=== PATIENT | female | born 1980 | race Asian ===

== ENCOUNTER 2019-03-27 13:50 | Inpatient (IN) | payer OTHER ==
[2019-03-27 14:50] LABS: BASO % 0.2 % (0-2.0); EOS % 0.2 % (0-4.5); HEMATOCRIT 38.4 % (32.4-45.2); HEMOGLOBIN 12.9 GM/dL (10.7-15.3); MCHC 33.5 g/dl (32.0-36.0); MEAN CELL VOLUME 95.7 fl (80-96); MEAN PLT VOLUME 8.4 fl (7.5-11.1); MONO % 7.6 % (3.8-10.2); PLATELET COUNT 246 K/MM3 (134-434); RBC 4.01 M/mm3 (3.60-5.2); RDW 13.4 % (11.6-15.6); WHITE BLOOD COUNT 10.7 K/mm3 (4.0-10.0)
[2019-03-27 15:05] LABS: INR 0.82 (0.83-1.09); PROTHROMBIN TIME (PATIENT) 9.6 SEC (9.7-13.0)
[2019-03-27 15:08] LABS: ACTIVATED PTT 26.7 SECONDS (25.2-36.5)
[2019-03-27] MEDS ORDERED: KETOROLAC TROMETHAMINE 30 MG/1 ML VIAL ONE (15:13)
[2019-03-27] MEDS ORDERED: SUCCINYLCHOLINE CHLORIDE 200 MG/10 ML SYRINGE ONE (15:13)
[2019-03-27] MEDS ORDERED: ePHEDrine SULFATE 50 MG/1 ML AMPULE ONE (15:13)
[2019-03-27] MEDS ORDERED: PHENYLEPHRINE HCL 10 MG/1 ML SINGLE DOSE VIAL ONE (15:13)
[2019-03-27 15:19] LABS: BLOOD UREA NITROGEN 7.9 mg/dL (7-18); CALCIUM 8.5 mg/dL (8.5-10.1); CREATININE 0.7 mg/dL (0.55-1.3); POTASSIUM 3.9 mmol/L (3.5-5.1)
[2019-03-27] MEDS ORDERED: ELECTROLYTE-148 SOLN 1,000 ML IV SCH (15:30)
[2019-03-27 15:34] VITALS: BMI 30.9
[2019-03-27] MEDS ORDERED: ONDANSETRON 4 MG/2 ML VIAL IVPUSH PRN (15:48)
[2019-03-27] MEDS ORDERED: morphine SULFATE/PF 0.5 MG/ML (2cc Syringe - QUVA) ONE (15:50)
[2019-03-27] MEDS ORDERED: CITRIC ACID/SODIUM CITRATE 30 ML UNIT-DOSE CUP PO ONE (16:00)
--- NOTE | 2019-03-27 16:09 | HP ---
Past Medical History - Primary Care Physician PCP:: Bob Miller - Admission Chief Complaint: preganacy 41 weeks, ama , previous c/s History of Present Illness: 38 yof with one previous c/s , post date with AMA, , for repeat c/s, cx closed .long, post , head high , fhr tracing cat. 1 , risks associated with repeat c/s and future risks has explained to patient and her , ulternatives and also discussed History Source: Patient Limitations to Obtaining History: No Limitations - Past Medical History ...: 3 ...Para: 1 ...Term: 1 ...: 0 ...Spon : 1 ...Induced : 0 ...Multiple Gestation: 0 ...LMP: 06/13/18 ... Weeks Gestation by Dates: 41 ...EDC by Dates: 03/20/19 ...EDC by Sono: 03/26/19 Heme/Onc: Yes: Anemia - Past Surgical History Past Surgical History: Yes: Hx Myomectomy: No Hx Transabdominal Cerclage: No - Smoking History Smoking history: Never smoked - Alcohol/Substance Use Hx Alcohol Use: No History of Substance Use: reports: None - Social History Usual Living Arrangement: Yes: With Spouse History of Recent Travel: No Home Medications - Allergies Allergies/Adverse Reactions: Allergies Allergy/AdvReac Type Severity Reaction Status Date / Time oyster extract Allergy Verified 03/27/19 15:10 Review of Systems - Review of Systems Constitutional: reports: No Symptoms Eyes: reports: No Symptoms HENT: reports: No Symptoms Neck: reports: No Symptoms Cardiovascular: reports: No Symptoms Respiratory: reports: No Symptoms Gastrointestinal: reports: No Symptoms Physical Exam - Maternity Vital Signs: Vital Signs Temperature 97.8 F 03/27/19 15:20 Pulse Rate 81 03/27/19 15:20 Respiratory Rate 18 03/27/19 15:20 Blood Pressure 96/64 03/27/19 15:20 O2 Sat by Pulse Oximetry (%) - Labs Lab Results: CBC, BMP 03/27/19 14:15 03/27/19 14:15
[2019-03-27] MEDS ORDERED: BENZOCAINE 28 GM HEMORRHOIDAL OINTMENT PR PRN (17:20)
[2019-03-27] MEDS ORDERED: IBUPROFEN 600 MG TABLET (FP) PO PRN (17:20)
[2019-03-27] MEDS ORDERED: METHYLERGONOVINE MALEATE 0.2 MG/1 ML AMP IM PRN (17:20)
[2019-03-27] MEDS ORDERED: oxyCODONE HCL 5 MG TABLET PO PRN (17:20)
[2019-03-27] MEDS ORDERED: diphenhydrAMINE HCL 25 MG CAPSULE (FP) PO PRN (17:20)
[2019-03-27] MEDS ORDERED: WITCH HAZEL 50% (TUCKS) 40 PAD/JAR PAD TP PRN (17:20)
[2019-03-27] MEDS ORDERED: BENZOCAINE 20% 57 GM BOTTLE TP PRN (17:20)
--- NOTE | 2019-03-27 17:27 | OP ---
Operative Note - Note: Operative Date: 03/27/19 Pre-Operative Diagnosis: 41 weeks, previous c/s , AMA Operation: repeat LST c/s Findings: live baby boy, ROP, clear fluid Surgeon: Bob Miller Dye Weigher: Noble Eduardo Anesthesiologist/SAMPLES AND REPAIRS PREPARER: Walter Jacob Specimens Removed: placenta, old keloid scar Estimated Blood Loss (mls): 700 Drains & Tubes with Location: reyes Blood Volume Replaced (mls): 0 Operative Report Dictated: Yes
[2019-03-27] MEDS ORDERED: DEXTROSE 5%-LACTATED RINGERS 1,000 ML IV SCH (17:30)
[2019-03-27] MEDS ORDERED: OXYTOCIN 20 UNITS in 0.9% NS 20 UNIT/1,000 ML INFUS.BAG IV SCH (17:30)
[2019-03-27] MEDS ORDERED: CEFAZOLIN 1 GM/D5W 1 GM/50 ML BAG IVPB SCH (18:00)
[2019-03-27] MEDS: IBUPROFEN 800 MG/8 ML IJ IVPB PRN (20:48)
[2019-03-28] MEDS: ACETAMINOPHEN 325 MG TABLET (FP) PO PRN (00:16)
[2019-03-28] MEDS: SIMETHICONE 80 MG TAB.CHEW (FP) PO PRN ×2 (00:16→19:25)
--- NOTE | 2019-03-28 07:25 | PN ---
Progress Note (short form) - Note Progress Note: pod 1 s/p c/s , doing well, has mild cramps CBC, BMP 03/27/19 14:15 03/27/19 14:15 Last Vital Signs Temp Pulse Resp BP Pulse Ox 98.2 F 80 20 102/52 L 99 03/28/19 04:00 03/28/19 04:00 03/28/19 06:00 03/28/19 04:00 03/27/19 18:24 abdomen soft, no distension, no cva incision dry, clean no calf tenderness no excess vaginal bleeding plan ambulate, cbc pain management advance diet
[2019-03-28] MEDS: IBUPROFEN 800 MG/8 ML IJ IVPB PRN ×2 (07:30→13:24)
[2019-03-28] MEDS: CEFAZOLIN 1 GM/D5W 1 GM/50 ML BAG IVPB SCH ×2 (08:15)
[2019-03-28 09:31] LABS: BASO % 0.4 % (0-2.0); EOS % 0.4 % (0-4.5); HEMATOCRIT 29.2 % (32.4-45.2); HEMOGLOBIN 9.8 GM/dL (10.7-15.3); LYMPH % 11.1 % (8-40); MCH 32.1 pg (25.7-33.7); MCHC 33.6 g/dl (32.0-36.0); MEAN CELL VOLUME 95.6 fl (80-96); MEAN PLT VOLUME 8.3 fl (7.5-11.1); MONO % 6.5 % (3.8-10.2); NEUT % 81.6 % (42.8-82.8); PLATELET COUNT 176 K/MM3 (134-434); RBC 3.06 M/mm3 (3.60-5.2); RDW 13.5 % (11.6-15.6)
[2019-03-28] MEDS: ENOXAPARIN NA (PORCINE) 40 MG/0.4 ML DISP.SYRIN SQ SCH (10:40)
[2019-03-28] MEDS ORDERED: BISACODYL 10 MG SUPP.RECT RC PRN (17:20)
--- NOTE | 2019-03-28 18:58 | OP ---
DATE OF OPERATION: 03/27/2019 PREOPERATIVE DIAGNOSIS: at 41 weeks, previous section, advanced maternal age, requesting repeat section. POSTOPERATIVE DIAGNOSIS: at 41 weeks, previous section, advanced maternal age, requesting repeat section. PROCEDURE: Repeat low segment transverse section. SURGEON: Serafin Calabrese MD DISSOLVER OPERATOR: YVONNE Danielson ANESTHESIA: Spinal. ANESTHESIOLOGIST: Walter Jacob MD ESTIMATED BLOOD LOSS: 700 mL FINDINGS: Live baby boy, Apgars 9 and 9, ROP position. OPERATION: Patient was taken to the operating room where adequate spinal anesthesia was achieved. Abdomen and perineum were prepped and draped. Pfannenstiel abdominal skin incision was made over the previous incision. There was an old large cheloid scar, which was removed at the request of the patient. The incision was carried down to the fascia with a knife and then the fascia was excised transversely with Metzenbaum scissors. The rectus muscles were from the fascia. The rectus muscles were split at the midline and then peritoneum was grasped with 2 Rachel clamps and entered the upper pelvic cavity. The lower uterine segment was identified and the uterovesical fold of the peritoneum was established. Bladder was pushed down. The low transverse uterine incision was made. Incision was extended laterally with bandage scissors. Head delivered and nasopharynx was suctioned. Live baby boy was delivered without any difficulty. Apgars were 9 and 9. Placenta was delivered manually. Uterine cavity was cleaned of all remaining tissue. The uterine incision was closed in 2 layers; first layer was 0 Biosyn continuous suture and the 2nd layer with 0 Biosyn imbricating the first layer. Bladder flap was closed with 0 Biosyn continuous suture. Both tubes and ovaries were checked and normal. No active bleeding was seen. All of the lap pad, sponge, and instrument counts were correct. The peritoneum was closed with 0 Biosyn continuous suture and muscles were brought together with the same suture of 0 Biosyn. Fascia was closed with 0 Biosyn continuous suture, subcutaneous fat with interrupted suture of 0 Biosyn, and skin was closed with lorena. Patient tolerated the procedure well and left the OR in good condition. SERAFIN CALABRESE M.D. [id number]
[2019-03-28] MEDS: IBUPROFEN 600 MG TABLET (FP) PO PRN (19:25)
[2019-03-28] MEDS: oxyCODONE HCL 5 MG TABLET PO PRN (19:26)
[2019-03-29] MEDS: IBUPROFEN 600 MG TABLET (FP) PO PRN ×4 (03:11→18:41)
[2019-03-29] MEDS: oxyCODONE HCL 5 MG TABLET PO PRN ×2 (03:11→09:17)
--- NOTE | 2019-03-29 07:55 | PN ---
Progress Note (short form) - Note Progress Note: pod 2 s/p repeat c/s, doing well, ambulating , voids ok, no excess vaginal bleeding CBC, BMP 03/28/19 08:00 03/27/19 14:15 Last Vital Signs Temp Pulse Resp BP Pulse Ox 98.1 F 84 20 105/58 L 99 03/28/19 19:38 03/28/19 19:38 03/28/19 19:38 03/28/19 19:38 03/27/19 18:24 abdomen soft, no distension, no cva incision dry, clean , intact uyerus firm lochia mild no calf tenderness plan cbc in am ambulate pain management
[2019-03-29] MEDS: ENOXAPARIN NA (PORCINE) 40 MG/0.4 ML DISP.SYRIN SQ SCH (09:18)
[2019-03-29] MEDS: SIMETHICONE 80 MG TAB.CHEW (FP) PO PRN ×2 (13:46→18:41)
[2019-03-29] MEDS: ACETAMINOPHEN 325 MG TABLET (FP) PO PRN ×2 (13:47→18:41)
[2019-03-30] MEDS: SIMETHICONE 80 MG TAB.CHEW (FP) PO PRN ×4 (01:39→20:14)
[2019-03-30] MEDS: SENNOSIDES/DOCUSATE COMBO (SENNA PLUS) TABLET (UD) PO PRN ×2 (01:39→20:14)
[2019-03-30] MEDS: IBUPROFEN 600 MG TABLET (FP) PO PRN ×4 (01:40→20:14)
[2019-03-30] MEDS: ACETAMINOPHEN 325 MG TABLET (FP) PO PRN ×3 (01:40→20:15)
[2019-03-30 07:51] LABS: BASO % 0.4 % (0-2.0); EOS % 1.1 % (0-4.5); HEMATOCRIT 28.5 % (32.4-45.2); HEMOGLOBIN 9.5 GM/dL (10.7-15.3); LYMPH % 17.9 % (8-40); MCH 32.3 pg (25.7-33.7); MCHC 33.5 g/dl (32.0-36.0); MEAN CELL VOLUME 96.6 fl (80-96); MEAN PLT VOLUME 8.2 fl (7.5-11.1); MONO % 9.2 % (3.8-10.2); NEUT % 71.4 % (42.8-82.8); PLATELET COUNT 203 K/MM3 (134-434); RBC 2.95 M/mm3 (3.60-5.2); RDW 13.6 % (11.6-15.6); WHITE BLOOD COUNT 7.6 K/mm3 (4.0-10.0)
[2019-03-30] MEDS: oxyCODONE HCL 5 MG TABLET PO PRN ×2 (08:38→14:54)
[2019-03-30] MEDS: ENOXAPARIN NA (PORCINE) 40 MG/0.4 ML DISP.SYRIN SQ SCH (10:16)
--- NOTE | 2019-03-30 15:48 | PN ---
Progress Note (short form) - Note Progress Note: pod 3 s/p c/s , doing well, had BM CBC, BMP 03/30/19 07:12 03/27/19 14:15 Last Vital Signs Temp Pulse Resp BP Pulse Ox 98.5 F 77 20 103/56 L 99 03/29/19 21:50 03/29/19 21:50 03/29/19 21:50 03/29/19 21:50 03/27/19 18:24 abdomen soft, no distension, no cva incison dry, clean , no discharge no calf tenderness plan ambulate , plan for d/c home in am
[2019-03-31] MEDS: ACETAMINOPHEN 325 MG TABLET (FP) PO PRN ×2 (00:51→09:01)
[2019-03-31] MEDS: IBUPROFEN 600 MG TABLET (FP) PO PRN ×2 (00:52→09:00)
--- NOTE | 2019-03-31 08:43 | DS ---
Physical Exam-DECK BUILDER Vital Signs: Vital Signs Temperature 98.3 F 03/30/19 20:44 Pulse Rate 73 03/30/19 20:44 Respiratory Rate 20 03/30/19 20:44 Blood Pressure 118/70 03/30/19 20:44 O2 Sat by Pulse Oximetry (%) 99 03/27/19 18:24 Constitutional: Yes: Well Nourished, No Distress, Calm Eyes: Yes: WNL, Conjunctiva Clear, EOM Intact HENT: Yes: WNL, Atraumatic, Normocephalic Neck: Yes: WNL, Supple, Trachea Midline Cardiovascular: Yes: WNL, Regular Rate and Rhythm Respiratory: Yes: WNL, Regular, CTA Bilaterally Gastrointestinal: Yes: WNL ...Rectal Exam: Yes: WNL Renal/: Yes: WNL ....Post : Yes: Uterus firm, Uterus non-tender, Slight lochia rubra Breast(s): Yes: WNL Musculoskeletal: Yes: WNL Extremities: Yes: WNL Edema: LLE: Trace, RLE: Trace Integumentary: Yes: WNL Neurological: Yes: WNL, Alert, Oriented ...Motor Strength: WNL Psychiatric: Yes: WNL, Alert, Oriented Labs: CBC, BMP 03/30/19 07:12 03/27/19 14:15 Delivery - Delivery Section: Repeat, Low Flap Transverse Type of Anesthesia: Spinal Episiotomy/Laceration: None EBL (cc): 700 Delivery, Single - Stages of Labor Date of Delivery: 03/27/19 Time of Delivery: 16:29 Time Placenta Delivered: 16:30 Placenta: Yes: Expressed - 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 post date Procedures: Principal: repeat LST c/s Other Procedures: none Hospital Course: no complication Health Concerns: obesity Plan of Treatment: low carb diet, exercise, Goals: normal body BMI Condition: Good - Instructions Diet, Activity, Other Instructions: regular diet, no intercourse , follow up office 1 weeks, if fever, pain, heavy vaginal bleeding call md Referrals: Bob Miller MD [Staff Physician] - Disposition: HOME - Home Medications Comprehensive Discharge Medication List: Ambulatory Orders Ibuprofen [Motrin -] 600 mg PO TID #90 tablet 03/30/19
[2019-03-31 08:55] VITALS: BP 116/58; PULSE 61; TEMP 98.1
[2019-03-31] MEDS: ENOXAPARIN NA (PORCINE) 40 MG/0.4 ML DISP.SYRIN SQ SCH (09:02)
[2019-03-31] MEDS: SIMETHICONE 80 MG TAB.CHEW (FP) PO PRN (09:02)
--- NOTE | 2019-04-04 14:42 | PATH ---
Surgical Pathology Report Patient Name: ANTHONY DELATORRE Med. Rec. #: [id number] /Age/Gender: 1980 (Age: 38) / F Account: [id number] Location: [facility] OBS/MANAGER ART Taken: 03/27/2019 Received: 03/28/2019 Reported: 04/04/2019 Physicians: Bob Miller M.D. Specimen(s) Received PLACENTA Clinical History , ectopic x1, 2018 Final Diagnosis PLACENTA: THIRD TRIMESTER PLACENTA. TRIVASCULAR CORD. MEMBRANES WITH NO DIAGNOSTIC ABNORMALITIES. Electronically Signed Vivienne Tracy M.D. Gross Description The specimen is received fresh labeled placenta and is a 560 gram, 18.5 x 15.0 x 4.0 cm. placenta with attached membranes and umbilical cord. The attached membranes are pitt, translucent with focal opacities and insert marginally. The umbilical cord measures 45 cm. in length and averages 1.1 cm. in diameter. The cord inserts eccentrically, 5 cm. to the nearest margin. No true knots or strictures are identified. Cut surface of the umbilical cord reveals 3 vessels. The surface is banuelos-blue with minimal fibrin deposition and appropriate caliber vessels. The maternal surface is red-brown with focal defects. Sectioning reveals red-brown, spongy parenchyma. No lesions are identified. Hr Consultant sections are submitted in three cassettes as follows: 1- membrane rolls and umbilical cord; 2-3- full thickness sections of placenta. /04/03/2019 [facility]/04/03/2019
== END 2019-03-31 12:35 | disposition home or self-care (01) | DRG 540 ==
LOC: JLDR 13:50 → J3W 19:59
PROVIDERS: ADMIT Obstetrics & Gynecology; ATTEND Obstetrics & Gynecology
PROC: 10D00Z1 Extraction of Products of Conception, Low, Open Approach (ICD-10-PCS; principal; 2019-03-27)
DX: O34.211 Maternal care for low transverse scar from previous cesarean delivery (principal); N85.8 Other specified noninflammatory disorders of uterus; O48.0 Post-term pregnancy; Z3A.41 41 weeks gestation of pregnancy; Z37.0 Single live birth
CPT/HCPCS: 36415; 80048; 85025; 85610; 85730; 86593; 86850; 86900; 86901; 87389; 88307-TC